=== PATIENT | male | born 1980 | race Caucasian/White ===

== ENCOUNTER 2023-06-25 23:06 | Emergency (ER) | payer SELFPAY ==
[~2023-06-25] VITALS: Ht 170.2 cm; Wt 99.8 kg
[2023-06-25 23:10] VITALS: BP 118/74; PULSE 78; RESP 18; TEMP 97.1; O2SAT 97
[2023-06-26] MEDS: LIDOCAINE 5% 1 EA PATCH TP ONE (00:13)
== END 2023-06-26 00:14 ==
LOC: MED 23:06
DX: S20.212A Contusion of left front wall of thorax, initial encounter (principal); I10 Essential (primary) hypertension; E78.5 Hyperlipidemia, unspecified; V89.2XXA Person injured in unspecified motor-vehicle accident, traffic, initial encounter; Y93.89 Activity, other specified; Y92.410 Unspecified street and highway as the place of occurrence of the external cause; Y99.8 Other external cause status
CPT/HCPCS: 71045; 93005; 99283